=== PATIENT | female | born 1975 | race Caucasian/White ===

== ENCOUNTER 2020-12-07 04:29 | Emergency (ER) | payer BC ==
[~2020-12-07 04:29] MED LIST: OMNICEF 300 MG300 MG PO; ZOFRAN ODT 4 MG4 MG PO
[2020-12-07] MEDS ORDERED: ACETAMINOPHN-B1 EACH PO (08:06)
== END 2020-12-07 08:09 | disposition home or self-care (01) ==
LOC: ER1 04:29
DX: R51.9 Headache, unspecified (principal); F17.210 Nicotine dependence, cigarettes, uncomplicated; Z88.2 Allergy status to sulfonamides; Z88.1 Allergy status to other antibiotic agents; Z88.8 Allergy status to other drugs, medicaments and biological substances
CPT/HCPCS: 96374; 96375; 99283; J1200; J1885; J2765; J7040

== ENCOUNTER 2021-04-29 20:54 | Emergency (ER) | payer BC ==
[~2021-04-29 20:54] MED LIST changes: +ACETAMINOPHN-B1 EACH PO
[2021-04-29] MEDS ORDERED: PROTONIX20 MG PO (21:26)
[2021-04-29] MEDS ORDERED: ZOFRAN ODT 4 MG4 MG PO (21:26)
== END 2021-04-29 22:00 | disposition home or self-care (01) ==
LOC: ER1 20:54
DX: R10.13 Epigastric pain (principal); K21.9 Gastro-esophageal reflux disease without esophagitis; F17.210 Nicotine dependence, cigarettes, uncomplicated; Z88.0 Allergy status to penicillin; Z88.2 Allergy status to sulfonamides; Z88.8 Allergy status to other drugs, medicaments and biological substances
CPT/HCPCS: 93005; 99283

== ENCOUNTER 2021-06-23 23:31 | Emergency (ER) | payer BC ==
[~2021-06-23 23:31] MED LIST changes: +PROTONIX20 MG PO
[2021-06-24] MEDS ORDERED: ZOFRAN ODT 4 MG4 MG PO (01:19)
[2021-06-24] MEDS ORDERED: OMNICEF 300 MG300 MG PO (01:19)
== END 2021-06-24 01:48 | disposition home or self-care (01) ==
LOC: ER1 23:31
DX: Z20.822 Contact with and (suspected) exposure to COVID-19 (principal)
CPT/HCPCS: 71045; 81001; 84703; 87086; 96374; 96375; 99284; J0696; J2405; U0002

== ENCOUNTER 2021-07-27 22:52 | Emergency (ER) | payer BC ==
[2021-07-27 23:30] LABS: HEMOGLOBIN 11.4 gm/dl (12.3-15.3); RED BLOOD COUNT 3.79 M/UL (4.00-5.10); WHITE BLOOD COUNT 7.3 K/UL (4.5-11.0)
[2021-07-27 23:43] LABS: BUN/CREATININE RATIO 15 (0-10)
[2021-07-28] MEDS ORDERED: CARAFATE 1 GM TA1 GM GT (00:39)
[2021-07-28] MEDS ORDERED: MAALOX PO (00:39)
[2021-07-28] MEDS ORDERED: [UNRECOGNIZED DRUG - OTHER] PO (00:39)
== END 2021-07-28 01:00 | disposition home or self-care (01) ==
LOC: ER1 22:52
PROVIDERS: Family Medicine
DX: K21.9 Gastro-esophageal reflux disease without esophagitis (principal); F17.290 Nicotine dependence, other tobacco product, uncomplicated
CPT/HCPCS: 80053; 81001; 83690; 84703; 85025; 99284

== ENCOUNTER → 2021-11-08 | Outpatient (CLI) | payer BC ==
[~2021-11-08] MED LIST changes: +CARAFATE 1 GM TA1 GM GT; +MAALOX PO; +[UNRECOGNIZED DRUG - OTHER] PO
== END ==
LOC: RAD 13:10
DX: M25.521 Pain in right elbow (principal)
CPT/HCPCS: 73070